=== PATIENT | female | born 1975 | race Caucasian/White ===

== ENCOUNTER 2020-04-02 11:12 | Day surgery (SDC) | payer BC ==
[2020-03-29 11:40] LABS: CLARITY,URINE CLEAR (Clear); COLOR,URINE YELLOW (Yellow); GLUCOSE, URINE NEGATIVE (Neg); KETONES,URINE NEGATIVE (Neg); LEUKOCYTE ESTERASE ,URINE NEGATIVE (Neg); NITRITES, URINE NEGATIVE (Neg); OCCULT BLOOD,URINE NEGATIVE (Neg); PH,URINE 6.5 (4.8-8.0); PROTEIN,URINE NEGATIVE (Neg); UROBILINOGEN,URINE 0.2 E.U/dL (0.2-1.0)
[2020-03-29 11:41] LABS: BASOPHILS % (AUTO) 0.4 % (0-1); EOSINOPHILS # (AUTO) 0.1 X10'3 (0-0.9); EOSINOPHILS % (AUTO) 2.3 % (0-6); LYMPHOCYTES # (AUTO) 2.2 X10'3 (1.1-4.8); LYMPHOCYTES % (AUTO) 41.3 % (21-51); MEAN CORPUSCULAR HEMOGLOBIN 35.7 PG (27.0-31.0); MEAN CORPUSCULAR HGB CONC 35.7 g/dL (33.0-36.5); MEAN CORPUSCULAR VOLUME 99.8 FL (78-98); MEAN PLATELET VOLUME 8.2 FL (7.4-10.4); MONOCYTES # (AUTO) 0.3 X10'3 (0-0.9); MONOCYTES % (AUTO) 6.1 % (2-12); NEUTROPHILS # (AUTO) 2.7 X10'3 (1.8-7.7); NEUTROPHILS % (AUTO) 49.9 % (42-75); PRE OP HEMATOCRIT 39.2 % (35.0-45.0); PRE OP PLATELET COUNT 224 X10'3 (140-440); RED BLOOD COUNT 3.92 X10'6 (4.20-5.60); RED CELL DISTRIBUTION WIDTH 12.1 % (11.5-14.5)
[2020-03-29 11:45] LABS: UA COLLECTION TYPE NON-SPECIFIED
[2020-03-29 11:46] LABS: PRE OP PROTIME 10.2 SECONDS (9.0-12.0)
[2020-03-29 11:48] LABS: HCG SERUM QL NEGATIVE
[2020-03-29 11:50] LABS: ALBUMIN/GLOBULIN RATIO 1.3 (1.1-1.5); ALKALINE PHOSPHATASE 55 IU/L (46-116); BLOOD UREA NITROGEN 12 MG/DL (7-18); BUN/CREATININE RATIO 15.6 (6.6-38.0); CALCIUM 9.4 MG/DL (8.5-10.1); CHLORIDE 107 MMOL/L (99-107); CREATININE 0.77 MG/DL (0.40-0.90); PRE OP ALT 24 U/L (30-65); PRE OP ANION GAP 5 (8-16); PRE OP AST 17 U/L (10-37); PRE OP BILIRUB, TOTAL 1.2 MG/DL (0.0-1.0); PRE OP GLUCOSE 82 MG/DL (70-104); PRE OP POTASSIUM 4.3 MMOL/L (3.4-5.1); PRE OP SODIUM 142 MMOL/L (135-145); TOTAL CARBON DIOXIDE 30.4 MMOL/L (24-32); TOTAL PROTEIN 7.2 G/DL (6.4-8.2); eGFR 81 ML/MIN
[~2020-04-02] VITALS: Ht 165.1 cm; Wt 72.4 kg
[2020-04-02] VITALS (15 sets, daily range): BP systolic 114–130; BP diastolic 68–83
[~2020-04-02 11:12] MED LIST: CITA20TA28 PO; OMEP-50 PO; ceFAZolin 2gm in dextrose, iso 50 ML IV ONE; famotidine 20mg tablet PO ONE; ringers solution, lacted 1,000 ML IV SCH
[2020-04-02] MEDS ORDERED: INDOCYANINE GREEN 25 MG/10 ML VIAL IV ONE (11:36)
[2020-04-02] MEDS ORDERED: BUPIVAcaine/PF 2.5 mg/ml (0.25%) 30ml vial ONE (12:59)
[2020-04-02] MEDS ORDERED: dexamethasone sod phosphate 10mg/ml inj ONE (13:15)
[2020-04-02] MEDS ORDERED: acetaminophen 1000 MG/100ml vial IV ONE (13:15)
[2020-04-02] MEDS ORDERED: sevoflurane 250ml liquid IH ONE (13:15)
[2020-04-02] MEDS ORDERED: fentaNYL /PF 50mcg/ml 5ml ampule ONE (13:18)
[2020-04-02] MEDS ORDERED: midazolam 2 mg/2 ml injection ONE (13:18)
[2020-04-02] MEDS ORDERED: rocuronium 10mg/ml inj IV ONE (13:27)
[2020-04-02] MEDS ORDERED: LIDOcaine 2% (20mg/ml) 5ml vial ONE (13:27)
[2020-04-02] MEDS ORDERED: propofol inj 20 ML IV ONE (13:27)
[2020-04-02] MEDS ORDERED: ondansetron/PF 4mg/2ml inj ONE (13:28)
[2020-04-02] MEDS ORDERED: ondansetron/PF 4mg/2ml inj IV PRN (14:20)
[2020-04-02] MEDS ORDERED: morphine 2 MG/ML inj. syringe IV PRN (14:20)
[2020-04-02] MEDS ORDERED: morphine 4 MG/ML inj SYRINge IV PRN (14:20)
[2020-04-02] MEDS ORDERED: meperidine/PF 25mg/ml syringe IV PRN ×3 (14:20)
[2020-04-02] MEDS ORDERED: proCHLORperazine 10 MG/2 ml inj IV PRN (14:20)
[2020-04-02] MEDS ORDERED: ringers solution, lacted 1,000 ML IV SCH (14:20)
--- NOTE | 2020-04-02 14:43 | NUR ---
Received from OR via [facility], accompanied by Anesthesiologist DR LI and report given by Anesthesiologist. PT DROWSY, DENIES PAIN, ABDOMEN W/5 LAP SITES W/BANDAIDS CDI. Addendum: 04/02/20 at 1508 by Rin Ramirez RN Amended: Links added.
[2020-04-02] MEDS ORDERED: HYDROcodone/acetaminophen 10/325mg tab PO ONE (16:40)
--- NOTE | 2020-04-02 17:03 | NUR ---
PT UP AND ABLE TO AMBULATE, PAIN CONTROLLED, D/C INSTRUCTIONS GIVEN AND GONE OVER W/PT WHO VERBALIZED UNDERSTANDING, PT D/CD TO HOME VIA W/C TO PRIVATE VEHICLE W/O INCIDENT. Addendum: 04/02/20 at 1728 by Rin Ramirez RN Amended: Links added.
== END 2020-04-02 17:03 | disposition home or self-care (01) ==
LOC: PAS 11:12
PROVIDERS: ATTEND Surgery
DX: K81.1 Chronic cholecystitis (principal); K82.8 Other specified diseases of gallbladder; K21.9 Gastro-esophageal reflux disease without esophagitis; F32.9 Major depressive disorder, single episode, unspecified; F41.9 Anxiety disorder, unspecified; Z88.1 Allergy status to other antibiotic agents; Z79.899 Other long term (current) drug therapy; Z98.890 Other specified postprocedural states
CPT/HCPCS: 36415; 47562; 80053; 81003; 82948; 84703; 85025; 85610; 85730; A6223; J2001; J2175; J2250; J2405; J2704; J3010; J3490; J7120; A4215; A4618; A6402; A7000; J0131; J1100

== ENCOUNTER 2023-11-20 10:24 | Day surgery (SDC) | payer BC ==
[~2023-11-20] VITALS: Ht 165.1 cm; Wt 74.9 kg
[2023-11-20] MEDS: cefazolin 2gm/D5W 100mL 100 ML IV ONE (05:30)
[~2023-11-20 10:24] MED LIST changes: +DICL-212 PO; +MULT-1085 PO; +OLME40TA18 PO; -OMEP-50 PO; +SEMA1PEN3 SUBCUT; -ceFAZolin 2gm in dextrose, iso 50 ML IV ONE; -famotidine 20mg tablet PO ONE; -ringers solution, lacted 1,000 ML IV SCH
[2023-11-20 10:30] VITALS: BP 115/67; PULSE 71; RESP 14; TEMP 98.9; O2SAT 96
[2023-11-20] MEDS: ringers solution, lacted 1,000 ML IV SCH ×2 (10:52→12:35)
[2023-11-20] MEDS: famotidine 20mg tablet PO ONE (10:52)
[2023-11-20] MEDS ORDERED: midazolam 1 mg/ML 2ml injection ONE (11:27)
[2023-11-20] MEDS ORDERED: fentaNYL/PF 50MCG/1 ML 2ML syringe ONE (11:27)
[2023-11-20] MEDS ORDERED: desflurane 240ml liquid inh. IH ONE (11:28)
[2023-11-20] MEDS: BUPIVAcaine 2.5mg/ml inj 50ml vial (contains preservative) ONE (12:07)
[2023-11-20] MEDS: LIDOcaine 1% (10mg/ml)w/preservative inj. 20ml MDV ONE (12:08)
[2023-11-20] MEDS ORDERED: ondansetron/PF 4mg/2ml inj ONE (12:09)
[2023-11-20] MEDS ORDERED: propofol inj 20 ML IV ONE (12:09)
[2023-11-20] MEDS ORDERED: ketorolac trometh 30MG/ML vial 30 MG/ML VIAL ONE (12:09)
[2023-11-20 12:32] VITALS: BP 116/72; PULSE 71; RESP 12; O2SAT 100
[2023-11-20] MEDS ORDERED: ondansetron/PF 4mg/2ml inj IV PRN (12:35)
[2023-11-20] MEDS ORDERED: meperidine/PF 25mg/ml syringe IV PRN ×2 (12:35)
[2023-11-20] MEDS ORDERED: proCHLORperazine 10 MG/2 ml inj IV PRN (12:35)
[2023-11-20] MEDS ORDERED: proMETHazine 25mg rectal suppository RC PRN (12:35)
[2023-11-20] MEDS ORDERED: labetalol 20mg/4ml (5mg/ml) syringe IV PRN (12:35)
[2023-11-20] MEDS ORDERED: hydrALAZINE 20mg/ml inj. IV PRN (12:35)
[2023-11-20] MEDS ORDERED: fentaNYL/PF 50MCG/1 ML 2ML syringe IV PRN ×2 (12:35)
[2023-11-20 12:40] VITALS: BP 117/68; PULSE 86; RESP 15; O2SAT 98
[2023-11-20 12:50] VITALS: BP 119/77; PULSE 81; RESP 13; O2SAT 99
[2023-11-20 13:00] VITALS: BP 118/69; PULSE 84; RESP 18; O2SAT 98
[2023-11-20 13:10] VITALS: BP 122/69; PULSE 88; RESP 15; O2SAT 98
== END 2023-11-20 13:22 | disposition home or self-care (01) ==
LOC: PAS 10:24
PROVIDERS: ATTEND Surgery
DX: R92.8 Other abnormal and inconclusive findings on diagnostic imaging of breast (principal); R92.2 Inconclusive mammogram; N60.11 Diffuse cystic mastopathy of right breast; N60.12 Diffuse cystic mastopathy of left breast; I10 Essential (primary) hypertension; F32.A Depression, unspecified; M19.90 Unspecified osteoarthritis, unspecified site; Z79.899 Other long term (current) drug therapy; Z90.49 Acquired absence of other specified parts of digestive tract; Z98.890 Other specified postprocedural states; Z88.1 Allergy status to other antibiotic agents; Z79.891 Long term (current) use of opiate analgesic
CPT/HCPCS: 19301; 82948; J0690; J1100; J1885; J2250; J2405; J2704; J3010; J3490; J7030; J7120; Z7506; Z7508; Z7512; A4215; A4618; A6449; A7000